=== PATIENT | male | born 1955 | race Caucasian/White ===

== ENCOUNTER 2021-05-17 09:24 | Day surgery (SDC) | payer MEDICARE ==
[2021-05-17] MEDS ORDERED: Depo-Medrol 40 MG/ML IM ONE (09:25)
[2021-05-17] MEDS ORDERED: Sodium Chloride 0.9(Preservative Free) 10 ML IJ ONE (09:25)
[2021-05-17] MEDS ORDERED: Lactated Ringers 1,000 ML IV ONE (16:12)
--- NOTE | 2021-05-18 11:19 | XRAY ---
43 seconds fluoroscopy time in surgery for left L4-S1 transforaminal MIGNON.
--- NOTE | 2021-05-20 22:35 | XRAY ---
Indication: Left L4-S1 transforaminal MIGNON. Intraoperative fluoroscopy was provided for 43 seconds. 3 digital spot images submitted for interpretation demonstrates posterior needle tips projected over the expected course of the left L4 and L5 nerve roots. A small amount of contrast has been injected for needle tip placement. Correlate with intraoperative findings/report. Incidentally, there is evidence of posterior orthopedic surgical fusion at L5-S1. Orthopedic hardware is only partially included on this study.
== END 2021-05-17 10:40 | disposition home or self-care (01) ==
LOC: SDC-PAIN 09:24
PROVIDERS: ATTEND Psychiatry & Neurology Pain Medicine
DX: M54.16 Radiculopathy, lumbar region (principal); E11.9 Type 2 diabetes mellitus without complications; Z79.899 Other long term (current) drug therapy
CPT/HCPCS: 64483; 64484; 72100; 77003; 82947; J1030; Q9966

== ENCOUNTER 2021-07-12 09:34 | Day surgery (SDC) | payer MEDICARE ==
[~2021-07-12 09:34] MED LIST: Lactated Ringers 1,000 ML IV ONE
[2021-07-12] MEDS ORDERED: DIPRIVAN 200 MG/20 ML IV ONE (09:35)
[2021-07-12] MEDS ORDERED: Sodium Chloride 0.9% 10 ML FLUSH Syringe IJ ONE (09:35)
[2021-07-12] MEDS ORDERED: Depo-Medrol 40 MG/ML IM ONE (09:35)
[2021-07-12] MEDS ORDERED: Xylocaine 1% Vial 30 ML PF IJ ONE (09:35)
--- NOTE | 2021-07-12 12:37 | XRAY ---
Indication: Lumbar MIGNON. Intraoperative fluoroscopy provided for 12 seconds. 2 digital spot images submitted for interpretation demonstrates midline posterior needle tip projecting just posterior to the lumbosacral junction interspace. Small amount of contrast injected for needle tip placement. Correlate with intraoperative findings/report. Incidental bilateral L5-S1 posterior spinal fusion hardware.
--- NOTE | 2021-07-12 12:49 | XRAY ---
12 seconds fluoroscopy time in surgery for lumbar MGINON.
== END 2021-07-12 10:55 | disposition home or self-care (01) ==
LOC: SDC-PAIN 09:34
PROVIDERS: ATTEND Psychiatry & Neurology Pain Medicine
DX: M54.16 Radiculopathy, lumbar region (principal); E11.69 Type 2 diabetes mellitus with other specified complication; Z79.84 Long term (current) use of oral hypoglycemic drugs
CPT/HCPCS: 62323; 72100; 77003; 82947; J1030; J2001; J2704; Q9966

== ENCOUNTER 2021-10-19 07:47 | Day surgery (SDC) | payer MEDICARE ==
[2021-10-19] MEDS ORDERED: Sodium Chloride 0.9% 10 ML FLUSH Syringe IJ ONE (07:48)
[2021-10-19] MEDS ORDERED: Depo-Medrol 40 MG/ML IM ONE (07:48)
[2021-10-19] MEDS ORDERED: Lactated Ringers 1,000 ML IV ONE (09:11)
[2021-10-19] MEDS ORDERED: DIPRIVAN 200 MG/20 ML IV ONE (10:03)
--- NOTE | 2021-10-20 09:37 | XRAY ---
Indication: Left L4-S1 transforaminal MIGNON. Intraoperative fluoroscopy provided for 54 seconds. 4 digital spot image submitted for interpretation demonstrates posterior needle tips projecting over the expected left L4 and L5 nerve roots. Small amount of contrast injected for needle tip placement. Correlate with intraoperative findings/report. Incidental bilateral L5-S1 spinal fusion hardware.
--- NOTE | 2021-10-20 09:57 | XRAY ---
54 seconds of fluoroscopy was used for a left L4-S1 transforaminal MIGNON.
== END 2021-10-19 10:31 | disposition home or self-care (01) ==
LOC: SDC-PAIN 07:47
PROVIDERS: ATTEND Psychiatry & Neurology Pain Medicine
DX: M54.16 Radiculopathy, lumbar region (principal); E11.9 Type 2 diabetes mellitus without complications; I10 Essential (primary) hypertension; Z79.899 Other long term (current) drug therapy
CPT/HCPCS: 64483; 64484; 72100; 77003; 82947; J1030; J2704; Q9966